=== PATIENT | male | born 2000 | race American Indian/Alaskan Native ===

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

== ENCOUNTER 2018-01-31 07:44 | Emergency (ER) | payer SELFPAY ==
[2018-01-31 07:57] VITALS: BP 132/84
--- NOTE | 2018-01-31 09:33 | Emergency Department Report ---
HPI - General Chief Complaint: Upper Respiratory Infection Time Seen by Provider: 01/31/18 09:08 - HPI HPI: 17-year-old [place] male presents to the emergency department with complaint of abdominal pain and a cough. The abdominal pain is mostly upper abdomen and/ or epigastric and has been going on for about 1.5 weeks. He says that the pain improves after eating. However he thinks that it is related to his diet as he says that he does not always eat regular meals and does sometimes eat late just before going to bed. He denies any problems with bowel or bladder but still tried a laxative with some relief. The symptoms have not resolved but they have improved since the first day that this occurred. Patient also now has a 2 day history of a productive cough. He says that he is bringing up some sputum and also feels like he can "taste the cold and the back of his throat." He has a tobacco smoker and says that he quit about 3 days ago. He otherwise has a past medical history of asthma. No primary care physician. Recent travel or sick contacts at home. ED Past Medical Hx - Past Medical History Hx Asthma: Yes - Surgical History Past Surgical History?: No - Social History Smoking Status: Former Smoker Substance Use Type: None - Medications Home Medications: Home Medications Medication Instructions Recorded Confirmed Last Taken Type Benzonatate [Tessalon Perles] 100 mg PO Q8HR #20 capsule 01/31/18 Unknown Rx Famotidine [Pepcid] 20 mg PO BID #20 tablet 01/31/18 Unknown Rx ED Review of Systems ROS: Stated complaint: NAUSEA, MINOR COLD Other details as noted in HPI Comment: All other systems reviewed and negative Constitutional: denies: chills, fever Eyes: denies: eye pain, eye discharge, vision change ENT: denies: ear pain, throat pain Respiratory: cough. denies: shortness of breath Cardiovascular: denies: chest pain, palpitations Gastrointestinal: abdominal pain, nausea. denies: vomiting Genitourinary: denies: urgency, dysuria Musculoskeletal: denies: back pain, joint swelling, arthralgia Skin: denies: rash, lesions Neurological: denies: headache, weakness, paresthesias Physical Exam - Physical Exam Vital Signs: Vital Signs 01/31/18 07:54 Temperature 98.7 F Pulse Rate 101 H Respiratory 16 Rate Blood Pressure 132/84 O2 Sat by Pulse 99 Oximetry Physical Exam: GENERAL: The patient is well-developed well-nourished. HENT: Normocephalic. Atraumatic. Patient has moist mucous membranes. EYES: Extraocular motions are intact. Pupils equal reactive to light bilaterally. NECK: Supple. Trachea is midline. CHEST/LUNGS: Clear to auscultation. No cough heard during examination. There is no respiratory distress noted. HEART/CARDIOVASCULAR: Regular. There is no tachycardia. There is no murmur. ABDOMEN: Abdomen is soft. Very mild epigastric tenderness to palpation. No guarding. Patient has normal bowel sounds. There is no abdominal distention. SKIN: Skin is warm and dry. NEURO: The patient is awake, alert, and oriented. The patient is cooperative. The patient has no focal neurologic deficits. The patient has normal speech and gait. MUSCULOSKELETAL: There is no tenderness or deformity. There is no limitation range of motion. There is no evidence of acute injury. ED Course Vital Signs 01/31/18 07:54 Temperature 98.7 F Pulse Rate 101 H Respiratory 16 Rate Blood Pressure 132/84 O2 Sat by Pulse 99 Oximetry ED Medical Decision Making - Lab Data Result diagrams: 01/31/18 11:10 01/31/18 11:10 - Radiology Data Radiology results: report reviewed, image reviewed interpreted by me: Chest x-ray does not show any acute process. There are no pleural effusions, obvious pneumonia and there is no pneumothorax. Abdominal x-ray shows nonspecific nonobstructive bowel gas. - Medical Decision Making The patient has a 1.5 week history of some intermittent abdominal pain. Most of the symptoms regarding the abdominal pain appears to be consistent with acid reflux except for the fact that eating improves his discomfort. He thinks is related to his diet. He does not have any significant tenderness to palpation in his abdomen is soft and nontoxic appearing. He has normal bowel sounds. Abdominal x-ray shows nonspecific nonobstructive bowel gas. Patient also has a few days of a cough. He is a smoker with a history of asthma and could be related to this, but it also could be related to some acid reflux. Chest x-ray does not show any signs of pneumonia, pneumothorax, pleural effusions, any specific consolidation or any other acute process. His vital signs are stable throughout his ED course. Patient had a normal-appearing CBC, CMP and lipase. For all these reasons he appears safe for discharge home at this time. He has been given Tessalon Perles for cough, Pepcid for his abdominal discomfort and possible GERD, and he has been given referrals for primary care. He will return to the emergency Department with any worsening of his symptoms or any acute distress. - Differential Diagnosis GERD, URI, bronchitis, gastritis Critical Care Time: No Critical care attestation.: If time is entered above; I have spent that time in minutes in the direct care of this critically ill patient, excluding procedure time. ED Disposition Clinical Impression: Cough, Upper abdominal pain Disposition: - TO HOME OR SELFCARE Is pt being admited?: No Condition: Stable Instructions: Gastroesophageal Reflux in Children (ED), Upper Respiratory Infection (ED), Abdominal Pain (ED) Additional Instructions: Please follow up with a primary care physician in the next few days. Continue with your smoking cessation. I have written a prescription for U for something for acid reflux as well as something for your cough. Return to the emergency Department with any worsening of your symptoms or any acute distress. Prescriptions: Benzonatate [Tessalon Perles] 100 mg PO Q8HR #20 capsule Famotidine [Pepcid] 20 mg PO BID #20 tablet Referrals: PRIMARY CAREMD [Primary Care Provider] - 3-5 Days TELMA RUSSELL MD [Staff Physician] - 3-5 Days [facility] [Outside] - 3-5 Days Time of Disposition: 12:10
--- NOTE | 2018-01-31 10:48 | XRay Report ---
FINAL REPORT EXAM: XR ABDOMEN 2V HISTORY: Abd pain COMPARISON: None. TECHNIQUE: Two views of the abdomen FINDINGS: Nonobstructive bowel gas pattern. Overall paucity of small bowel gas. No free air. No abnormal calcification. No organomegaly. No acute bony or soft tissue abnormality. IMPRESSION: Nonobstructive bowel gas pattern. Paucity of small bowel gas.
--- NOTE | 2018-01-31 10:50 | XRay Report ---
FINAL REPORT EXAM: XR CHEST ROUTINE 2V HISTORY: cough COMPARISON: None. TECHNIQUE: Frontal and lateral views of the chest. FINDINGS: The cardiomediastinal silhouette is normal in appearance. The lungs are clear without focal consolidation. There is no pleural effusion or pneumothorax. There is no acute soft tissue or osseous abnormality. IMPRESSION: No acute cardiopulmonary disease.
[2018-01-31 11:33] LABS: Basophils % (Auto) 0.5 % (0.0-1.8); Eosinophils # (Auto) 0.1 K/mm3 (0.0-0.4); Eosinophils % (Auto) 0.7 % (0.0-4.3); Hematocrit 49.8 % (35.5-45.6); Hemoglobin 16.6 gm/dl (11.8-15.2); Lymphocytes # (Auto) 2.2 K/mm3 (1.2-5.4); Lymphocytes % (Auto) 27.5 % (13.4-35.0); Mean Corpuscular HGB Conc 33 % (32-34); Mean Corpuscular Hemoglobin 28 pg (28-32); Mean Corpuscular Volume 84 fl (84-94); Monocytes # (Auto) 0.6 K/mm3 (0.0-0.8); Monocytes % (Auto) 7.1 % (0.0-7.3); Platelet Count 248 K/mm3 (140-440); Red Cell Distribution Width 14.3 % (13.2-15.2)
[2018-01-31 11:45] LABS: Alanine Aminotransferase 22 units/L (7-56); Albumin 4.9 g/dL (3.9-5); BUN/Creatinine Ratio 19; Blood Urea Nitrogen 15 mg/dL (9-20); Calcium 9.8 mg/dL (8.4-10.2); Hemolysis Index 57; Lipase 53 units/L (13-60)
== END 2018-01-31 12:34 | disposition home or self-care (01) ==
LOC: ED 07:44
DX: R10.13 Epigastric pain (principal); R05 Cough; J45.909 Unspecified asthma, uncomplicated; Z87.891 Personal history of nicotine dependence
CPT/HCPCS: 36415; 71046; 74019; 80053; 83690; 85025